=== PATIENT | female | born 1940 ===

== ENCOUNTER → 2017-04-01 | Outpatient (CLI) | payer OTHER ==
[~2017-04-01] VITALS: Ht 152.4 cm; Wt 60.8 kg
[~2017-04-01] MED LIST: LOSARTAN POTASS25 MG
== END | disposition home or self-care (01) ==
LOC: PPHC 11:48
DX: R05 Cough (principal); R09.81 Nasal congestion

== ENCOUNTER → 2017-04-09 | Outpatient (CLI) | payer OTHER ==
[~2017-04-09] VITALS: Ht 152.4 cm; Wt 61.2 kg
== END | disposition home or self-care (01) ==
LOC: PPHC 11:56
DX: J06.9 Acute upper respiratory infection, unspecified (principal); R05 Cough; J40 Bronchitis, not specified as acute or chronic